=== PATIENT | female | born 1975 | race Asian ===

== ENCOUNTER → 2021-07-16 | Outpatient (CLI) | payer OTHER ==
[2021-07-17 14:11] LABS: HPV 16 Negative (Negative); HPV 18 Negative (Negative); HPV OTHER HR TYPES Negative (Negative)
== END | disposition home or self-care (01) ==
LOC: LAB SHORT 10:30
PROVIDERS: Family Medicine
DX: Z12.4 Encounter for screening for malignant neoplasm of cervix (principal)
CPT/HCPCS: 87624; G0123

== ENCOUNTER 2021-09-25 12:51 | Day surgery (SDC) | payer OTHER ==
[~2021-09-25] VITALS: Ht 162.6 cm; Wt 88.8 kg
[2021-09-25] MEDS ORDERED: LOSA25 (13:06)
[2021-09-25] MEDS ORDERED: FLUOXETINE HCL20 M1 (13:06)
--- NOTE | 2021-09-25 13:23 | NUR ---
09/25/21 1323 Thuy Thompson 1 TRY RIGHT HAND BLEW 2 TRY RIGHT WRIST NO FLASH
== END 2021-09-25 14:52 | disposition home or self-care (01) ==
LOC: ORSCSDS 12:51
PROVIDERS: Surgery
PROC: 0DJD8ZZ Inspection of Lower Intestinal Tract, Via Natural or Artificial Opening Endoscopic (ICD-10-PCS; principal; 2021-09-25 14:15)
DX: Z12.11 Encounter for screening for malignant neoplasm of colon (principal); Z80.0 Family history of malignant neoplasm of digestive organs; K64.8 Other hemorrhoids; I10 Essential (primary) hypertension; E66.9 Obesity, unspecified; Z68.33 Body mass index [BMI] 33.0-33.9, adult; Z79.899 Other long term (current) drug therapy
CPT/HCPCS: J2704; J7120